=== PATIENT | female | born 1960 | race Asian ===

== ENCOUNTER 2018-06-09 21:27 | Emergency (ER) | payer BC, OTHER ==
[2018-06-09] MEDS ORDERED: Sodium Chloride 0.9% 10 ML Syringe FLUSH PRN (21:32)
[2018-06-09 22:11] LABS: ANION GAP 13.4 mmol/L (10-20); CHLORIDE,CL 104 mmol/L (98-107); SODIUM,NA 140 mmol/L (136-145)
[2018-06-09] MEDS: GI Cocktail Oral Solution 30 ML PO ONE (22:22)
--- NOTE | 2018-06-09 22:55 | EDM.PDOC ---
ED HPI GENERAL MEDICAL PROBLEM - General Chief Complaint: Cardiovascular Problem Stated Complaint: Chest Pain Time Seen by Provider: 06/09/18 21:28 Source of Information: Reports: Patient, Family, RN, RN Notes Reviewed History Limitations: Reports: No Limitations - History of Present Illness INITIAL COMMENTS - FREE TEXT/NARRATIVE: Patient presents to the ED at [facility] complaining of chest pain/ epigastric pain that actually started last week. She states the pain started in the epigastric area and goes up to the upper sternum area. She states the pain has been on/off but progressively gotten worse since last week. No SOB. No sweating. No dizziness. No previously known cardiac problems. No abdominal or pelvic pain. Patient states she does feel nauseated at times. No vomiting or diarrhea. She does not relate this pain to any time of day or with/without foods. 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 Denies: Lightheadedness, Palpitations GI/Abdominal: Reports: Abdominal Pain (upper epigastric), Nausea. Denies: Vomiting Skin: Reports: No Symptoms Neurological: Reports: No Symptoms ED EXAM, GENERAL - Physical Exam Exam: See Below Exam Limited By: No Limitations General Appearance: Alert, No Apparent Distress Respiratory/Chest: No Respiratory Distress, Lungs Clear, Normal Breath Sounds Cardiovascular: Normal Peripheral Pulses, Regular Rate, Rhythm, No Murmur Peripheral Pulses: 2+: Radial (L), Radial (R) GI/Abdominal: Normal Bowel Sounds, Soft, Tender (epigastric) Neurological: Alert, Oriented Skin Exam: Warm, Dry, Intact, Normal Color Course - Orders/Labs/Meds Orders: Active Orders 24 hr Category Date Time Status EKG 12 Lead [EKG Documentation Completion] [RC] STAT Care 06/09/18 21:31 Active Chest 2V [CR] Stat Exams 06/09/18 21:31 Taken Sodium Chloride 0.9% [Saline Flush] Med 06/09/18 21:32 Active 10 ml FLUSH ASDIRECTED PRN Peripheral IV Insertion Adult [OM.PC] Routine Oth 06/09/18 21:32 Ordered Medication Orders Sodium Chloride (Saline Flush) 10 ml FLUSH ASDIRECTED PRN PRN Reason: Keep Vein Open Labs: Laboratory Tests 06/09/18 06/09/18 06/09/18 Range/Units 21:40 21:40 21:40 WBC 7.4 (4.0-10.0) x10^3/uL RBC 4.55 (4.00-5.50) x10^6/uL Hgb 13.5 (12.0-16.0) g/dL Hct 40.8 (33.0-47.0) % MCV 89.7 (78.0-93.0) fL MCH 29.7 (26.0-32.0) pg MCHC 33.1 (32.0-36.0) g/dL RDW Coeff of Antonino 13.2 (10.0-15.0) % Plt Count 239 (130-400) x10^3/uL Neut % (Auto) 61.1 (50.0-80.0) % Lymph % (Auto) 28.6 (25.0-50.0) % [place] % (Auto) 6.3 (2.0-11.0) % Eos % (Auto) 3.6 (0.0-4.0) % Baso % (Auto) 0.4 (0.2-1.2) % Sodium 140 (136-145) mmol/L Potassium 3.4 L (3.5-5.1) mmol/L Chloride 104 (98-107) mmol/L Carbon Dioxide 26 (21-32) mmol/L Anion Gap 13.4 (10-20) mmol/L BUN 12 (7-18) mg/dL Creatinine 0.8 (0.55-1.02) mg/dL Est Cr Clr Drug Dosing TNP Estimated GFR (MDRD) > 60 Glucose 159 H (74-106) mg/dL Calcium 9.1 (8.5-10.1) mg/dL Corrected Calcium 9.18 (8.5-10.1) mg/dL Total Bilirubin 0.3 (0.2-1.0) mg/dL AST 18 (15-37) U/L ALT 36 (14-59) U/L Alkaline Phosphatase 111 (46-116) U/L Creatine Kinase 94 (26-192) U/L Troponin I < 0.017 (<=0.056) ng/mL Total Protein 8.9 H (6.4-8.2) g/dL Albumin 3.9 (3.4-5.0) g/dL Globulin 5.0 Albumin/Globulin Ratio 0.78 Amylase 93 (25-115) U/L Lipase 210 (73-393) U/L Meds: Medications Generic Name Dose Route Start Last Admin Trade Name Freq PRN Reason Stop Dose Admin Sodium Chloride 10 ml 06/09/18 21:32 Saline Flush FLUSH ASDIRECTED PRN Keep Vein Open Discontinued Medications Generic Name Dose Route Start Last Admin Trade Name Freq PRN Reason Stop Dose Admin Al Hydroxide/Mg Hydroxide 30 ml 06/09/18 22:13 06/09/18 22:22 Gi Cocktail PO 06/09/18 22:14 30 ml ONETIME ONE Administration Departure - Departure Time of Disposition: 22:55 Disposition: Home, Self-Care 01 Reason for Transfer *Q: Other Condition: Good Clinical Impression: Atypical chest pain GERD (gastroesophageal reflux disease) Qualifiers: Esophagitis presence: with esophagitis Qualified Code(s): K21.0 - Gastro- esophageal reflux disease with esophagitis Instructions: Nonspecific Chest Pain, Heartburn Referrals: Candi Alvarez PA-C [Primary Care Provider] - Forms: ED Department Discharge Additional Instructions: 1. Stay well hydrated and rest 2. Eat a bland diet, no greasy fatty foods, no carbonated beverages 3. Start taking Omeprazole (Prilosec) daily and see if this will keep symptoms under control 4. See your Primary as symptoms warrant - My Orders Last 24 Hours: My Active Orders 06/09/18 21:31 EKG 12 Lead [EKG Documentation Completion] [RC] STAT Chest 2V [CR] Stat 06/09/18 21:32 Sodium Chloride 0.9% [Saline Flush] 10 ml FLUSH ASDIRECTED PRN Peripheral IV Insertion Adult [OM.PC] Routine - Assessment/Plan Last 24 Hours: My Active Orders 06/09/18 21:31 EKG 12 Lead [EKG Documentation Completion] [RC] STAT Chest 2V [CR] Stat 06/09/18 21:32 Sodium Chloride 0.9% [Saline Flush] 10 ml FLUSH ASDIRECTED PRN Peripheral IV Insertion Adult [OM.PC] Routine Assessment:: GERD Atypical chest pain Plan: Labs, EKG, and chest xray discussed with patient and family. Given symptoms, this does favor GERD as she did respond well to GI cocktail which resolved all of her pain. She states she is feeling much better. Recommend trying PPI OTC and follow up with PCP.
== END 2018-06-09 23:09 | disposition home or self-care (01) ==
LOC: VM.ED 21:27
DX: K21.0 Gastro-esophageal reflux disease with esophagitis (principal); R07.89 Other chest pain
CPT/HCPCS: 36415; 71046; 80053; 82150; 82550; 83690; 84484; 85025; 93005; 99285; A9270

== ENCOUNTER 2020-02-11 08:41 | Emergency (ER) | payer OTHER ==
--- NOTE | 2020-02-11 09:10 | EDM.PDOC ---
ED HPI GENERAL MEDICAL PROBLEM - General Time Seen by Provider: 02/11/20 09:00 Source of Information: Reports: Patient History Limitations: Reports: No Limitations - History of Present Illness INITIAL COMMENTS - FREE TEXT/NARRATIVE: Patient comes emergency department today with complaints of indigestion and palpitations. This patient about 2 years ago had a similar episode where she had indigestion burping belching and palpitations for which she was started on omeprazole and Carafate. This was discontinued. Over the past week she has had increased epigastric bloating distention and belching. During the night she also feels like her heart is pounding stronger than she normally would and she can sense it. She is unsure if it was irregular fast or slow but she can just feel it more than normal. She continues to have the burping belching bloating distention in the epigastric region. She has no abdominal pain. No nausea no vomiting. Feels like she is always hungry. No diarrhea. No hematuria dysuria or urinary frequency. No chest pain shortness of breath or difficulty breathing. No weakness dizziness lightheadedness. No syncope. She has not tried anything for her heartburn other than Tums. No black or tarry stools. No history of peptic ulcer disease. - Related Data Allergies Allergy/AdvReac Type Severity Reaction Status Date / Time No Known Allergies Allergy Verified 02/11/20 09:10 Home Meds: Home Meds Losartan [Cozaar] 100 mg PO DAILY 06/10/18 [History] amLODIPine Besylate [Amlodipine Besylate] 10 mg PO DAILY 06/10/18 [History] Omeprazole 20 mg PO ACBREAKFAST #28 cap.sr 02/11/20 [Rx] Sucralfate [Carafate] 1 gm PO QIDACANDBED #120 tablet 02/11/20 [Rx] Past Medical History Cardiovascular History: Reports: Hypertension ED ROS GENERAL - Review of Systems Review Of Systems: Comprehensive ROS is negative, except as noted in HPI. ED EXAM, GENERAL - Physical Exam Exam: See Below Exam Limited By: No Limitations General Appearance: Alert, WD/WN, No Apparent Distress, Anxious Eye Exam: Bilateral Eye: EOMI, PERRL Ears: Normal External Exam, Normal TMs Nose: Normal Inspection, Normal Mucosa Throat/Mouth: Normal Inspection, Normal Lips, Normal Oropharynx, Normal Voice Head: Atraumatic, Normocephalic Neck: Normal Inspection, Supple, Non-Tender Respiratory/Chest: No Respiratory Distress, Lungs Clear, Normal Breath Sounds, No Accessory Muscle Use, Chest Non-Tender Cardiovascular: Normal Peripheral Pulses, Regular Rate, Rhythm Peripheral Pulses: 2+: Radial (L), Radial (R), Posterior Tibial (L), Posterior Tibial (R), Dorsalis Pedis (L), Dorsalis Pedis (R) GI/Abdominal: Normal Bowel Sounds, Soft, Non-Tender, No Organomegaly, No Distention, No Abnormal Bruit, No Mass (Female) Exam: Deferred Rectal (Female) Exam: Deferred Back Exam: Normal Inspection, Full Range of Motion. No: CVA Tenderness (L), CVA Tenderness (R) Extremities: Normal Inspection, Normal Range of Motion, Normal Capillary Refill Neurological: Alert, Oriented, Normal Cognition, Normal Gait, No Motor/Sensory Deficits Psychiatric: Normal Affect, Normal Mood Skin Exam: Warm, Dry, Intact, Normal Color, No Rash EKG INTERPRETATION EKG Date: 02/11/20 Time: 08:44 Rate (Beats/Min): 81 [place]: Normal P-Wave: Present QRS: Normal ST-T: Normal QT: Normal Course - Vital Signs Last Recorded V/S: Last Vital Signs Temp 37.3 C 02/11/20 09:12 Pulse 83 02/11/20 09:12 Resp 16 02/11/20 09:12 BP 140/73 02/11/20 09:12 Pulse Ox 98 02/11/20 09:12 - Orders/Labs/Meds Labs: Laboratory Tests 02/11/20 02/11/20 02/11/20 Range/Units 09:14 09:14 09:14 WBC 5.4 (4.0-10.0) x10^3/uL RBC 4.16 (4.00-5.50) x10^6/uL Hgb 12.0 D (12.0-16.0) g/dL Hct 36.5 (33.0-47.0) % MCV 87.7 (78.0-93.0) fL MCH 28.8 (26.0-32.0) pg MCHC 32.9 (32.0-36.0) g/dL RDW Coeff of Antonino 12.3 (10.0-15.0) % Plt Count 197 (130-400) x10^3/uL Neut % (Auto) 62.7 (50.0-80.0) % Lymph % (Auto) 27.1 (25.0-50.0) % [place] % (Auto) 6.3 (2.0-11.0) % Eos % (Auto) 3.0 (0.0-4.0) % Baso % (Auto) 0.9 (0.2-1.2) % Sodium 144 (136-145) mmol/L Potassium 3.1 L (3.5-5.1) mmol/L Chloride 105 (98-107) mmol/L Carbon Dioxide 27 (21-32) mmol/L Anion Gap 15.1 (10-20) mmol/L BUN 13 (7-18) mg/dL Creatinine 0.8 (0.55-1.02) mg/dL Est Cr Clr Drug Dosing 53.04 mL/min Estimated GFR (MDRD) > 60 Glucose 117 H (74-106) mg/dL Calcium 9.1 (8.5-10.1) mg/dL Corrected Calcium 9.10 (8.5-10.1) mg/dL Total Bilirubin 0.7 (0.2-1.0) mg/dL AST 17 (15-37) U/L ALT 20 (14-59) U/L Alkaline Phosphatase 86 (46-116) U/L Troponin I 0.000 (<=0.056) ng/mL Total Protein 8.6 H (6.4-8.2) g/dL Albumin 4.0 (3.4-5.0) g/dL Globulin 4.6 Albumin/Globulin Ratio 0.87 TSH, Ultra Sensitive 1.766 (0.358-3.74) uIU/mL Meds: Medications Discontinued Medications Generic Name Dose Route Start Last Admin Trade Name Freq PRN Reason Stop Dose Admin Al Hydroxide/Mg Hydroxide 30 ml 02/11/20 09:28 02/11/20 09:42 Gi Cocktail PO 02/11/20 09:29 30 ml ONETIME ONE Administration Potassium Chloride 20 meq 02/11/20 09:58 02/11/20 10:21 Potassium Chloride Solution PO 02/11/20 09:59 20 meq ONETIME ONE Administration - Re-Assessments/Exams Free Text/Narrative Re-Assessment/Exam: 02/11/20 09:30 EKG normal Labs drawn GI cocktail given. The patient's bloating belching sensation resolved after the GI cocktail. Laboratory evaluation is rather unremarkable to include a TSH that is normal. Troponin is normal as well. I reviewed the results with the patient as well. Patient was monitored during her time in the ER and she had a normal sinus rhythm without any ectopy tachycardia or bradycardia. Think a lot of her symptoms even possibly her palpitations are due to her gastroesophageal reflux or indigestion. Has had this in the past with very similar symptomology and it was resolved on omeprazole. I will send her home with Carafate as well as omeprazole for a 28-day course. She is never had an upper GI scope and should consider that if she has recurrence of her GERD that last for an extended period of time. We will also refer her to primary care on Friday for recheck if she has continued pounding sensation and/or palpitations for a Holter monitor. Although I feel that with the control of her reflux over the weekend the sensation will most likely resolve. She is comfortable with this plan and her questions are answered. Departure - Departure Time of Disposition: : Disposition: Home, Self-Care 01 Clinical Impression: Palpitations with regular cardiac rhythm, Hypokalemia GERD (gastroesophageal reflux disease) Qualifiers: Esophagitis presence: with esophagitis Qualified Code(s): K21.0 - Gastro- esophageal reflux disease with esophagitis Prescriptions: Omeprazole 20 mg PO ACBREAKFAST #28 cap.sr Sucralfate [Carafate] 1 gm PO QIDACANDBED #120 tablet Instructions: Heartburn, [id number], Palpitations, [id number], Potassium Content of Foods Referrals: PCP,None [Primary Care Provider] - Forms: ED Department Discharge Additional Instructions: Increase your intake of bananas tomatoes to increase the potassium in your body and diet. Carafate 1 tablet 4 times a day before meals and at bedtime for a total of 28 days RX to the pharmacy. Omeprazole 1 capsule daily for the next 28 days. RX to the pharmacy. 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 Return to the ED if new or worsening symptoms. Sepsis Event Note - Focused Exam Vital Signs: Vital Signs Temp Pulse Resp BP Pulse Ox 02/11/20 09:12 37.3 C 83 16 140/73 98 Date Exam was Performed: 02/11/20 Time Exam was Performed: 18:08 - Assessment/Plan Assessment:: Palpitations GERD Hypokalemia Plan: Increase your intake of bananas tomatoes to increase the potassium in your body and diet. Carafate 1 tablet 4 times a day before meals and at bedtime for a total of 28 days RX to the pharmacy. Omeprazole 1 capsule daily for the next 28 days. RX to the pharmacy. 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 Return to the ED if new or worsening symptoms.
[2020-02-11] MEDS ORDERED: GI Cocktail Oral Solution 30 ML PO ONE (09:28)
[2020-02-11 09:49] LABS: CHLORIDE,CL 105 mmol/L (98-107); SODIUM,NA 144 mmol/L (136-145)
[2020-02-11 09:53] LABS: ANION GAP 15.1 mmol/L (10-20)
[2020-02-11] MEDS ORDERED: Potassium Chloride 10% 20 MEQ/15 ML Soln 15 ML UD Cup PO ONE (09:58)
== END 2020-02-11 10:25 | disposition home or self-care (01) ==
LOC: VM.ED 08:41
DX: E87.6 Hypokalemia (principal); K21.0 Gastro-esophageal reflux disease with esophagitis; I10 Essential (primary) hypertension; Z79.899 Other long term (current) drug therapy
CPT/HCPCS: 36415; 80053; 84443; 84484; 85025; 99284; A9270